=== PATIENT | male | born 1955 | race Caucasian/White ===

== ENCOUNTER 2021-10-10 01:01 | Outpatient (CLI) | payer BC, SELFPAY ==
--- NOTE | 2021-10-10 08:45 | DI.NM_ITS ---
APPROVED REPORT Exam: Exercise Treadmill Patient Location: Out-Patient Room/Bed: Stress Nurse: Danya Barrett RN Ordering Provider:TREY MANNITH, Contact Number: [phone] BMI: 21.96 Baseline Rhythm: Sinus Bradycardia Indications: YATES Medical History Medical History: Intermittent systemic steroid therapy w/ intermittent hyperlipidemia Cardiac Medications: None Allergies: NKA Cardiac Risk Factors: Hyperlipidemia (intermittently per pt) Previous Cardiac Procedures: None Pretest Chest Pain Characteristics: None Exercise History: Physically active Physical Disabilities: None Lung Sounds: Clear to auscultation, Clear to auscultation Heart Sounds: Regular Stress Test Details Test: Exercise stress testing was performed using a Luis protocol. Nuclear Acquisition: Rest Tc-99m/Stress Tc-99m 1 day Rest Isotope: Tc-99m Sestamibi. Dose: 11.0 Date: 10/10/2021 Injection Time: 0900 Stress Isotope: Tc-99m Sestamibi. Dose: 36.1 Date: 10/10/2021 Injection Time: 1034 HR Resting HR Supine: 58 bpm Max Heart Rate (APMHR): 157.746373 bpm Resting HR Standin bpm Target HR (85% APMHR): 133.203616 bpm Max HR Achieved: 143 bpm % of APMHR: 91.08 Recovery HR: 87 bpm HR response to stress: Normal HR response to stress BP Resting BP Supine: 140/78 mmHg Resting BP Standin/78 mmHg Max BP: 160/94 mmHg Recovery BP: 150/82 mmHg BP response to stress: Normal blood pressure response to stress. ECG Resting ECG: Sinus Bradycardia Ectopy: None Stress ECG: Sinus Tachycardia ST Change: No significant ST segment changes noted Arrhythmia: Occasional PVCs towards end of exercise Recovery ECG: Sinus Rhythm Recovery ST Change: No significant ST segment changes noted Recovery Arrhythmia: Rare PVC Clinical Reason for Termination: Fatigue Stress Symptoms: General Fatigue, Dyspnea Exercise duration: 11 min58 sec Highest Stage Reached: Stage 4: 4.2 mph at 16% grade. Exercise capacity: 13.48 METs Loya Treadmill Score: 11.1 Rate Pressure Product: [id number] Stress ECG Conclusion 1. Electrocardiogram was within normal limits 2. The patient exercised on a Luis protocol and completed a workload of 13.48 METS, limited by fatig ue 3. Normal heart rate and blood pressure response to exercise. The patient achieved 91% of predicted heart rate for age 4. There was no electrocardiographic evidence of myocardial ischemia 5. There were no significant dysrhythmias Loya Treadmill Score is 11.1 which is Low risk. Stress Test Summary STAGE Time (mins) Speed (mph) Grade (%) HR BP SYMPTOMS METS Supine 58 140/78 Standing 65 138/78 SpO2 98% 1 3 1.7 10 81 146/80 SpO2 98% 4.6 2 6 2.5 12 97 148/82 SpO2 95% 7 3 9 3.4 14 110 150/88 SpO2 97% 10.2 4 12 4.2 16 143 160/94 Mild SOB, SpO2 98% 12.9 1 min recovery 128 152/84 Mild SOB, SpO2 98% 3 min recovery 90 158/86 SOB resolved, SpO2 98% 6 min recovery 87 150/82 SpO2 98% MPI Conclusion Normal myocardial perfusion without evidence of ischemia or prior infarction EF 53%, normal wall motion Radiologist Interpretation Radiologist agrees with Veterinary Toxicologist's Interpretation. Radiologist Interpretation by: Joseline Concepcion MD Interpretation Date/Time: 10/10/2021 16:41:51
== END 2021-10-10 01:21 ==
PROVIDERS: PCP Family Medicine; Visit Provider Family Medicine
DX: R06.09 Other forms of dyspnea (principal)
CPT/HCPCS: 78452; 93017